=== PATIENT | male | born 1950 | race Caucasian/White ===

== ENCOUNTER → 2017-11-04 | Outpatient (CLI) | payer BC, MEDICARE | END | disposition home or self-care (01) | LOC: PCVCIMAG 09:00 | DX: I08.3 Combined rheumatic disorders of mitral, aortic and tricuspid valves (principal); I50.9 Heart failure, unspecified; R06.00 Dyspnea, unspecified; R00.1 Bradycardia, unspecified; R60.9 Edema, unspecified | CPT/HCPCS: 93306 ==